=== PATIENT | male | born 1970 | race Caucasian/White ===

== ENCOUNTER 2016-12-01 12:14 | Emergency (ER) | payer OTHER ==
[2016-12-01 12:39] VITALS: BP 119/78
--- NOTE | 2016-12-01 12:45 | UC ---
Throat Pain/Nasal Steve HPI - HPI Summary HPI Summary: complaint of nasal congestion ,sore throat,cough that started 6 days ago productive cough coughing which is worse at night fever 2 days ago of 101 bilateral ear pain constant headache hears wheezing in his chest at night taking robitussin with some relief of cough in the daytime denies shortness of breath hasn't used albuterol during this illness - History of Current Complaint Chief Complaint: UCGeneralIllness Stated Complaint: EAR PAIN SORE THROAT COUGH CONGESTION Time Seen by Provider: 12/01/16 12:37 Hx Obtained From: Patient - Allergies/Home Medications Allergies/Adverse Reactions: Allergies Allergy/AdvReac Type Severity Reaction Status Date / Time No Known Allergies Allergy Verified 12/01/16 12:59 Home Medications: Home Medications Dextromethorphan-Guaifenesin [Robitussin Cough & Chest 5-100 mg/5Ml] 1 cap PO Q6HR PRN 12/01/16 [History Confirmed 12/01/16] Guaifenesin [Mucinex Maximum Strength] 2 tab PO Q6HR PRN 12/01/16 [History Confirmed 12/01/16] PMH/Surg Hx/FS Hx/Imm Hx Previously Healthy: Yes Endocrine History Of: Denies: Diabetes, Thyroid Disease Cardiovascular History Of: Denies: Cardiac Disorders, Hypertension, Pacemaker/ICD Respiratory History Of: Denies: COPD, Asthma GI/ History Of: Denies: Gastroesophageal Reflux, Ulcer, Renal Disease Neurological History Of: Denies: CVA, Dementia, Seizures Other History Of: Negative For: Anticoagulant Therapy - Surgical History Surgical History: Yes Surgery Procedure, Year, and Place: APPENDECTOMY. Abdominal Surgery, bowl perf - Family History Known Family History: Positive: None - Social History Occupation: Unemployed Lives: With Family Alcohol Use: None Substance Use Type: Marijuana Substance Use Comment - Amount & Last Used: Daily- stopped approx 3 months ago. Smoking Status (MU): Heavy Every Day Tobacco Smoker Type: Cigarettes Amount Used/How Often: 1 PPD Length of Time of Smoking/Using Tobacco: 31 YEARS Have You Smoked in the Last Year: Yes Household Exposure Type: Cigarettes Cessation Counseling: Patient Advised to Stop Review of Systems Constitutional: Fever Skin: Negative Eyes: Negative ENT: Ear Ache, Nasal Discharge Respiratory: Cough Cardiovascular: Negative Gastrointestinal: Negative Genitourinary: Negative Motor: Negative Neurovascular: Negative Musculoskeletal: Negative Neurological: Headache Psychological: Negative All Other Systems Reviewed And Are Negative: Yes Physical Exam Triage Information Reviewed: Yes Appearance: No Pain Distress, Well-Nourished Vital Signs: Initial Vital Signs Temp 98.6 F 12/01/16 12:22 Pulse 74 12/01/16 12:22 Resp 20 12/01/16 12:22 BP 119/78 12/01/16 12:22 Pulse Ox 95 12/01/16 12:22 Vital Signs Reviewed: Yes Eyes: Positive: Conjunctiva Clear ENT: Positive: Pharyngeal erythema, Nasal congestion, Nasal drainage, TM red - right ear Neck: Positive: No Lymphadenopathy Respiratory: Positive: No respiratory distress, No accessory muscle use, Rhonchi , Wheezing - throughout Cardiovascular: Positive: RRR, No Murmur, Pulses Normal Abdomen Description: Positive: Nontender, Soft Bowel Sounds: Positive: Present Musculoskeletal: Positive: No Edema Neurological: Positive: Alert Psychological Exam: Normal Skin Exam: Normal Re-Evaluation - Re-Evaluation First Eval Re-Evaluation Time: 13:08 Change: Improved - less wheezing,rhonchi and more air movement throughout Throat Pain/Nasal Course/Dx - Course Course Of Treatment: exam completed. lung sounds improved with duoneb. will treat as COPD exacerbation d/t 32 year 1ppd smoking history. patient refuses chest x-ray - Differential Dx/Diagnosis Differential Diagnosis/HQI/PQRI: Pharyngitis, Sinusitis, URI Provider Diagnoses: bronchitis Discharge - Discharge Plan Condition: Stable Disposition: HOME Prescriptions: Azithromycin TAB* [Zithromax TAB (Z-DOMINIQUE) 250 mg #6 tabs] 2 tab PO .TODAY, THEN 1 DAILY #1 dominique predniSONE TAB* [Deltasone TAB*] 50 mg PO DAILY #5 tab Patient Education Materials: How to Stop Smoking (ED), Acute Bronchitis (ED) Referrals: No Primary Care Phys,NOPCP [Medical Doctor] - [facility] [place] PHYSICIAN REFERRAL [Outside] Additional Instructions: Please take antibiotic as directed Use your albuterol inhaler every 4-6 hours when needed for wheezing, shortness of breath or uncontrolled coughing. Increase fluids and rest Take acetaminophen or ibuprofen for fever or pain Please review your discharge instructions. If your symptoms do not improve please call your primary care provider or return to urgent care.
[2016-12-01] MEDS ORDERED: Albuterol/Ipratropium NEB.SOL* Albuterol 2.5 MG/Ipratropium 0.5 MG 3 ML INH ONE (12:48)
== END 2016-12-01 13:28 | disposition home or self-care (01) ==
LOC: UCEAST 12:14
DX: J40 Bronchitis, not specified as acute or chronic (principal); F17.210 Nicotine dependence, cigarettes, uncomplicated
CPT/HCPCS: 99212; A9270-GY; G0463

== ENCOUNTER 2017-06-20 11:05 | Emergency (ER) | payer OTHER ==
--- NOTE | 2017-06-20 13:12 | RAD ---
HISTORY: Left shoulder pain and injury COMPARISONS: None VIEWS: 4, Frontal internal rotation, external rotation, outlet, and axillary views of the left shoulder FINDINGS: BONE DENSITY: Normal. BONES: There is no displaced fracture. JOINTS: There is no arthropathy. ALIGNMENT: There is no dislocation. SOFT TISSUES: Unremarkable. OTHER FINDINGS: None. IMPRESSION: NO ACUTE OSSEOUS INJURY. IF SYMPTOMS PERSIST, RECOMMEND REPEAT IMAGING.
--- NOTE | 2017-06-20 14:20 | ED ---
Upper Extremity Pain - HPI Summary HPI Summary: 47 male presents to ED with complaints of left shoulder/upper arm injury that occurred 3 weeks ago. Patient states he had a big machine piece fall on his arm 3 weeks ago and had since been experiencing pain. Has taken ibuprofen and tylenol withou relief. Movement and palpation makes it worse. States he has pulled muscles before and this feels like what it is. No other complaints. No numbness/tingling. No PMHx. Is right hand dominant. - History of Current Complaint Chief Complaint: EDExtremityUpper Stated Complaint: SHOULDER AND ARM INJURY Time Seen by Provider: 06/20/17 12:59 Hx Obtained From: Patient Mechanism Of Injury: Direct Blow Onset/Duration: Started Weeks Ago - 3, Traumatic, Still Present Timing: Constant Severity Initially: Severe Severity Currently: Moderate Pain Location: Shoulder, Arm - left Character: Sharp, Aching, Throbbing, Spasmodic Aggravating Factor(s): Movement, Lifting Alleviating Factor(s): Nothing, Rest Associated Signs & Symptoms: Positive: Swelling, Bruising. Negative: Numbness/ Tingling Related History: Dominant Hand Right - Allergies/Home Medications Allergies/Adverse Reactions: Allergies Allergy/AdvReac Type Severity Reaction Status Date / Time No Known Allergies Allergy Verified 06/20/17 11:15 PMH/Surg Hx/FS Hx/Imm Hx Endocrine/Hematology History: Denies: Hx Anticoagulant Therapy, Hx Diabetes, Hx Thyroid Disease Cardiovascular History: Denies: Hx Hypertension, Hx Pacemaker/ICD Respiratory History: Denies: Hx Asthma, Hx Chronic Obstructive Pulmonary Disease (COPD) GI History: Denies: Hx Ulcer History: Denies: Hx Renal Disease Sensory History: Denies: Hx Contacts or Glasses Opthamlomology History: Denies: Hx Contacts or Glasses Neurological History: Denies: Hx Dementia, Hx Seizures Psychiatric History: Denies: Hx Substance Abuse - Surgical History Surgery Procedure, Year, and Place: APPENDECTOMY. Abdominal Surgery, perf - Immunization History Immunizations Up to Date: Yes Infectious Disease History: No Infectious Disease History: Denies: Hx Hepatitis, Hx Human Immunodeficiency Virus (HIV), Traveled Outside the [place] in Last 30 Days - Family History Known Family History: Positive: None - Social History Alcohol Use: None Substance Use Type: Reports: None Substance Use Comment - Amount & Last Used: Daily- stopped approx 3 months ago. Smoking Status (MU): Light Every Day Tobacco Smoker Type: Cigarettes Amount Used/How Often: 3/4 PPD Length of Time of Smoking/Using Tobacco: 31 YEARS Have You Smoked in the Last Year: Yes Review of Systems Constitutional: Negative Cardiovascular: Negative Respiratory: Negative Positive: Arthralgia, Myalgia, Decreased ROM, Edema - left upper arm, shoulder Positive: Bruising - left upper arm Neurological: Negative All Other Systems Reviewed And Are Negative: Yes Physical Exam Triage Information Reviewed: Yes Vital Signs On Initial Exam: Initial Vitals Temp Pulse Resp BP Pulse Ox 95.6 F 67 16 124/76 97 06/20/17 11:16 12 11:16 06/20/17 11:16 06/20/17 11:16 06/20/17 11:16 Vital Signs Reviewed: Yes Appearance: Positive: Well-Appearing, Well-Nourished, Pain Distress - moderate with movement of left arm Skin: Positive: Warm, Skin Color Reflects Adequate Perfusion, Dry. Negative: Cold, Cyanosis @, Pale, Erythema @ Eyes: Positive: Conjunctiva Clear ENT: Positive: Hearing grossly normal Respiratory/Lung Sounds: Positive: Clear to Auscultation, Breath Sounds Present. Negative: Rales, Rhonchi, Wheezes Cardiovascular: Positive: Normal, RRR, Pulses are Symmetrical in both Upper and Lower Extremities - 2+ radial bl. Negative: Murmur, Rub Musculoskeletal: Positive: Limited @ - left shoulder/arm du to pain, better with passive ROM, Abnormal @ - firm swollen area palpated on tricep /deltoid area, appears to be a pulled muscle, negative yergason and speeds no concern for bicep tendon rupture at this time, Pain @ - left upper arm, posterior and deltoid/shoulder, Other - rest of MSK exam normal, no firmness or concern for compartment syndrome. Negative: Interruption @ Neurological: Positive: Normal, Sensory/Motor Intact, Alert, Oriented to Person Place, Time, NV Bundle Intact Distally, Normal Gait Diagnostics - Vital Signs Vital Signs Temp Pulse Resp BP Pulse Ox 06/20/17 11:16 95.6 F 67 16 124/76 97 - Laboratory Lab Statement: Any lab studies that have been ordered have been reviewed, and results considered in the medical decision making process. - Radiology shoulder left Xray Interpretation: No Acute Changes - negative Radiology Interpretation Completed By: Radiologist - and myself Course/Dx - Course Course Of Treatment: given pain medication and muscle relaxer. encouraged NSAID continue use with food. rest, heat, sling, avoid over use. massage. follow up ortho for further imaging as may be necessary (MRI) for ligament and muscle damage. does have most ROM although painful. xray obtained and negative. no concern for other etiology at this time. no signs of compartment syndrome. patient aware of worsening signs and symptoms, agrees and understands plan. normal vitals. - Diagnoses Differential Diagnosis/HQI/PQRI: Positive: Contusion, Strain, Sprain Provider Diagnoses: Strain of left upper arm, Contusion, Sprain of left shoulder Discharge - Discharge Plan Condition: Stable Disposition: HOME Prescriptions: Cyclobenzaprine TAB* [Flexeril 10 MG TAB*] 10 mg PO BEDTIME #15 tab oxyCODONE/Acetamin 5/325 MG* [Percocet 5/325 TAB*] 1 tab PO Q6H PRN #20 tab MDD 2 PRN Reason: Pain Patient Education Materials: Muscle Strain (ED), Shoulder Sprain (ED) Referrals: Augusto Dominguez MD [Primary Care Provider] - Additional Instructions: Rest, elevate and apply heat and massage. continue taking ibuprofen with food. take prescribed medications as directed. follow up with orthopedics,c all to make an appointment, and PCP. any new or worsening symptoms please seek medical attention promptly.
[2017-06-20 14:25] VITALS: BP 135/82
== END 2017-06-20 14:24 | disposition home or self-care (01) ==
LOC: ED 11:05
DX: S46.912A Strain of unspecified muscle, fascia and tendon at shoulder and upper arm level, left arm, initial encounter (principal); S43.402A Unspecified sprain of left shoulder joint, initial encounter; S40.022A Contusion of left upper arm, initial encounter; W20.8XXA Other cause of strike by thrown, projected or falling object, initial encounter; Y93.9 Activity, unspecified; Y92.9 Unspecified place or not applicable; F17.210 Nicotine dependence, cigarettes, uncomplicated
CPT/HCPCS: 99282

== ENCOUNTER 2017-08-10 14:48 | Emergency (ER) | payer OTHER ==
[2017-08-10] MEDS ORDERED: Ketorolac INJ* 60 MG/2 ML VIAL IM ONE (16:31)
[2017-08-10] MEDS ORDERED: oxyCODONE/Acetamin 5/325 MG* TAB PO ONE (16:31)
--- NOTE | 2017-08-10 17:49 | RAD ---
INDICATION: Trauma, right hip, right lower back and rib pain. COMPARISON: There are no prior studies available for comparison. TECHNIQUE: A CT scan of the chest, abdomen and pelvis was performed without intravenous or oral contrast. Contiguous axial sections were obtained from the lung apices through the symphysis pubis. Images were reconstructed in the coronal and sagittal planes. FINDINGS: The lungs are clear. No pleural effusion or pneumothorax is seen. No mediastinal hemorrhage is seen. No significant enlarged mediastinal or hilar lymph nodes are noted. The heart is within normal limits in size. No pericardial effusion is present. The thoracic aorta is normal in caliber. The liver and spleen are normal in size without significant focal abnormality. No calcified gallstones are seen. The pancreas is normal in size. There is a surgical clip inferior to the right hepatic lobe and several surgical clips present in the upper anterior abdomen. The kidneys and adrenal glands are normal in size. No hydronephrosis is seen. No significant focal renal abnormality is seen. The prostate gland is enlarged measuring 4.5 cm in transverse dimension. There are several coarse internal calcifications. The aorta is normal in caliber without significant calcific plaque. There is no evidence for retroperitoneal hemorrhage. No significant enlarged retroperitoneal lymph nodes are seen. The stomach, small and large bowel appear nondistended. The patient is status post appendectomy by history. No free intraperitoneal air or fluid is seen. There is a slightly displaced fracture of the right posterior 11th rib. There are nondisplaced fractures of the right L1 and L2 transverse processes. IMPRESSION: SLIGHTLY DISPLACED FRACTURE OF THE RIGHT POSTERIOR 11TH RIB AND NONDISPLACED FRACTURES OF THE RIGHT L1 AND L2 TRANSVERSE PROCESSES.
[2017-08-10 18:26] VITALS: BP 121/72
--- NOTE | 2017-08-11 11:56 | ED ---
Grant Coronado Jennifer, scribed for Henri Sykes MD on 08/10/17 at 1708 . Lower Extremity - HPI Summary HPI Summary: The patient is a 47 year old male who complains of right hip and back pain after he fell off his roof and landed on the sidewalk today. He additionally complains of muscle pain which he describes as a burning sensation. The patient denied abdominal pain. - History of Current Complaint Chief Complaint: EDExtremityLower Stated Complaint: FALL/RT HIP PAIN Time Seen by Provider: 08/10/17 16:12 Hx Obtained From: Patient Mechanism Of Injury: Fall From Height Of: - Roof of his house Onset of Pain: Immediate Onset/Duration: Still Present Severity Initially: Moderate Severity Currently: Moderate Pain Intensity: 8 Pain Scale Used: 0-10 Numeric Timing: Constant Associated Signs And Symptoms: Positive: Other - Fluid coming out of throat, burning muscle pain Aggravating Factor(s): Movement Alleviating Factor(s): Nothing - Allergies/Home Medications Allergies/Adverse Reactions: Allergies Allergy/AdvReac Type Severity Reaction Status Date / Time No Known Allergies Allergy Verified 08/10/17 15:20 PMH/Surg Hx/FS Hx/Imm Hx Endocrine/Hematology History: Denies: Hx Anticoagulant Therapy, Hx Diabetes, Hx Thyroid Disease Cardiovascular History: Denies: Hx Hypertension, Hx Pacemaker/ICD Respiratory History: Denies: Hx Asthma, Hx Chronic Obstructive Pulmonary Disease (COPD) GI History: Denies: Hx Ulcer History: Denies: Hx Renal Disease Sensory History: Denies: Hx Contacts or Glasses Opthamlomology History: Denies: Hx Contacts or Glasses Neurological History: Denies: Hx Dementia, Hx Seizures Psychiatric History: Denies: Hx Substance Abuse - Surgical History Surgery Procedure, Year, and Place: APPENDECTOMY. REPAIR OF BOWEL PERFORATION Infectious Disease History: No Infectious Disease History: Denies: Hx Hepatitis, Hx Human Immunodeficiency Virus (HIV), Traveled Outside the [place] in Last 30 Days - Family History Known Family History: Negative: Renal Disease - Social History Alcohol Use: None Substance Use Type: Reports: None Substance Use Comment - Amount & Last Used: Daily- stopped approx 3 months ago. Smoking Status (MU): Light Every Day Tobacco Smoker Type: Cigarettes Amount Used/How Often: 3/4 PPD Length of Time of Smoking/Using Tobacco: 31 YEARS Have You Smoked in the Last Year: Yes Review of Systems Negative: Fever Positive: Other - Fluid coming out of throat Positive: Myalgia, Other - Right hip and back pain All Other Systems Reviewed And Are Negative: Yes Physical Exam - Summary Physical Exam Summary: Appearance: The patient is well-nourished in no acute distress and in no acute pain. Skin: The skin is warm and dry and skin color reflects adequate perfusion. HEENT: ~The head is normocephalic and atraumatic. The pupils are equal and reactive. The conjunctivae are clear and without drainage. ~Nares are patent and without drainage. ~Mouth reveals moist mucous membranes and the throat is without erythema and exudate. ~The external ears are intact. The ear canals are patent and without drainage. The tympanic membranes are intact. Neck: the neck is supple with full range of motion and non-tender. There are no carotid bruits. ~There is no neck vein distension. Respiratory: Chest is non-tender. ~Lungs are clear to auscultation and breath sounds are symmetrical and equal. Cardiovascular: Heart is regular rate and rhythm. ~There is no murmur or rub auscultated. ~~There is no peripheral edema and pulses are symmetrical and equal. Abdomen: The abdomen is soft and non-tender. ~There are normal bowel sounds heard in all four quadrants and there is no organomegaly palpated. Musculoskeletal: There is no back tenderness noted. ~Tender in the right sciatic area and iliac crest. ~There is good capillary refill. ~There is no peripheral edema or calf tenderness elicited. Neurological: Patient is alert and oriented to person, place and time. ~The patient has symmetrical motor strength in all four extremities. ~Cranial nerves are grossly intact. Deep tendon reflexes are symmetrical and equal in all four extremities. Psychiatric: The patient has an appropriate affect and does not exhibit any anxiety or depression. Triage Information Reviewed: Yes Vital Signs On Initial Exam: Initial Vitals Temp Pulse Resp BP Pulse Ox 98.2 F 73 18 123/76 96 08/10/17 14:52 08/10/17 14:52 08/10/17 14:52 08/10/17 14:52 08/10/17 14:52 Vital Signs Reviewed: Yes Diagnostics - Vital Signs Vital Signs Temp Pulse Resp BP Pulse Ox 08/10/17 16:35 16 08/10/17 16:30 65 136/56 97 08/10/17 16:00 59 122/65 98 08/10/17 15:30 66 118/69 96 08/10/17 15:14 68 96 08/10/17 15:12 125/62 08/10/17 14:52 98.2 F 73 18 123/76 96 - Laboratory Lab Statement: Any lab studies that have been ordered have been reviewed, and results considered in the medical decision making process. - CT CT Chest/Abd/Pel CT Interpretation: Positive (See Comments) - SLIGHTLY DISPLACED FRACTURE OF THE RIGHT POSTERIOR 11TH RIB AND NONDISPLACED FRACTURES OF THE RIGHT L1 AND L2 TRANSVERSE PROCESSES. Dr. Sykes has reviewed this report. CT Interpretation Completed By: Radiologist Lower Extremity Course/Dx - Course Course Of Treatment: Mr. Crawley took a serious fall off his roof today landing on cement. He had no head trauma or neck pain but did C/O a lot of back and right hip pain. CT revealed transverse process fractures of L1-L2 as well as a T-11 posterior rib fracture all on the right consistent with his pain and tenderness. He remained stable in the ED and I will treat him symptomatically. - Diagnoses Provider Diagnoses: Rib fracture, Fracture of transverse process of vertebra Discharge - Discharge Plan Condition: Stable Disposition: HOME Prescriptions: Cyclobenzaprine TAB* [Flexeril 10 MG TAB*] 10 mg PO TID PRN #20 tab PRN Reason: Pain oxyCODONE/Acetamin 5/325 MG* [Percocet 5/325 TAB*] 1 tab PO Q6H PRN #20 tab MDD 4 PRN Reason: Pain Patient Education Materials: Rib Fracture (ED) Referrals: Augusto Dominguez MD [Primary Care Provider] - Additional Instructions: Follow up with your primary care physician in three days. Return to the emergency department for any new or worsening symptoms. The documentation as recorded by the Grant foy Jennifer accurately reflects the service I personally performed and the decisions made by , Henri Sykes MD.
== END 2017-08-10 18:38 | disposition home or self-care (01) ==
LOC: ED 14:48
DX: S32.018A Other fracture of first lumbar vertebra, initial encounter for closed fracture (principal); S32.028A Other fracture of second lumbar vertebra, initial encounter for closed fracture; S22.31XA Fracture of one rib, right side, initial encounter for closed fracture; W13.2XXA Fall from, out of or through roof, initial encounter; Y92.9 Unspecified place or not applicable; F17.210 Nicotine dependence, cigarettes, uncomplicated
CPT/HCPCS: 71250; 74176; 96372; 99283; A9270-GY; J1885

== ENCOUNTER 2018-02-24 07:22 | Emergency (ER) | payer OTHER ==
--- NOTE | 2018-02-24 09:12 | RAD ---
HISTORY: Pain after kneeling COMPARISONS: None VIEWS: 4, Frontal, lateral, axial, and oblique views of the right knee FINDINGS: BONE DENSITY: Normal. BONES: There is no displaced fracture. JOINTS: There is no arthropathy. There is no suprapatellar joint effusion or lipohemarthrosis. ALIGNMENT: There is no dislocation. SOFT TISSUES: There is prepatellar soft tissue swelling. OTHER FINDINGS: None. IMPRESSION: SOFT TISSUE SWELLING. NO ACUTE OSSEOUS INJURY. IF SYMPTOMS PERSIST, RECOMMEND REPEAT IMAGING.
[2018-02-24] MEDS ORDERED: Ibuprofen TAB* 800 MG PO ONE (09:36)
--- NOTE | 2018-02-24 09:38 | ED ---
Lower Extremity - HPI Summary HPI Summary: Pt here w/ Rt anterior knee pain/swelling after kneeling all day yesterday. Mild redness - no streaking. Denies numbness, tingling, weakness and has FROM. Better w/ ice. Has not taken NSAID's but is open to trying some. Denies fever, chills, fatigue, other areas of joint pain/swelling, headache or neck stiffness , difficulty urinating. - History of Current Complaint Chief Complaint: EDExtremityLower Stated Complaint: RT KNEE PAIN Time Seen by Provider: 02/24/18 07:33 Hx Obtained From: Patient Pain Intensity: 8 - Allergies/Home Medications Allergies/Adverse Reactions: Allergies Allergy/AdvReac Type Severity Reaction Status Date / Time No Known Allergies Allergy Verified 02/24/18 07:26 PMH/Surg Hx/FS Hx/Imm Hx Previously Healthy: Yes Endocrine/Hematology History: Denies: Hx Anticoagulant Therapy, Hx Diabetes, Hx Thyroid Disease Cardiovascular History: Denies: Hx Hypertension, Hx Pacemaker/ICD Respiratory History: Denies: Hx Asthma, Hx Chronic Obstructive Pulmonary Disease (COPD) GI History: Denies: Hx Ulcer History: Denies: Hx Renal Disease Musculoskeletal History: Denies: Hx Arthritis Sensory History: Denies: Hx Contacts or Glasses Opthamlomology History: Denies: Hx Contacts or Glasses Neurological History: Denies: Hx Dementia, Hx Seizures Psychiatric History: Denies: Hx Substance Abuse - Surgical History Surgery Procedure, Year, and Place: APPENDECTOMY. REPAIR OF BOWEL PERFORATION Infectious Disease History: No Infectious Disease History: Denies: Hx Hepatitis, Hx Human Immunodeficiency Virus (HIV), Traveled Outside the [place] in Last 30 Days - Family History Known Family History: Positive: None Negative: Renal Disease - Social History Occupation: Employed Full-time Lives: With Family Alcohol Use: None Hx Substance Use: No Substance Use Type: Reports: None Substance Use Comment - Amount & Last Used: Daily- stopped approx 3 months ago. Hx Tobacco Use: Yes Smoking Status (MU): Current Every Day Smoker Type: Cigarettes Amount Used/How Often: 3/4 PPD Length of Time of Smoking/Using Tobacco: 31 YEARS Have You Smoked in the Last Year: Yes Review of Systems Constitutional: Negative Negative: Fever, Chills, Fatigue Cardiovascular: Negative Respiratory: Negative Negative: Vomiting, Nausea Genitourinary: Negative Positive: Arthralgia, Edema. Negative: Myalgia, Decreased ROM Skin: Other - redness Neurological: Negative Psychological: Normal All Other Systems Reviewed And Are Negative: Yes Physical Exam Triage Information Reviewed: Yes Vital Signs On Initial Exam: Initial Vitals Temp Pulse Resp BP Pulse Ox 98.5 F 79 15 126/72 94 02/24/18 07:26 18 07:26 02/24/18 07:26 02/24/18 07:26 02/24/18 07:26 Vital Signs Reviewed: Yes Appearance: Positive: Well-Appearing, Well-Nourished, Pain Distress - mild Skin: Positive: Warm, Skin Color Reflects Adequate Perfusion, Dry - skin over anterior knee is calloused and w/ focal erythema - no lesions, no skin breakdown , no streaking ENT: Positive: Hearing grossly normal Respiratory/Lung Sounds: Positive: Breath Sounds Present Cardiovascular: Positive: Pulses are Symmetrical in both Upper and Lower Extremities. Negative: Leg Edema Left, Leg Edema Right Musculoskeletal: Positive: Strength/ROM Intact, Pain @ - Anterior knee w/ mild TTP - appears to have focal edema of tissue here (appears to be isolated to prepatellar bursa) Neurological: Positive: Normal, Sensory/Motor Intact, Alert, Oriented to Person Place, Time, CN Intact II-III Psychiatric: Positive: Normal Diagnostics - Vital Signs Vital Signs Temp Pulse Resp BP Pulse Ox 02/24/18 07:26 98.5 F 79 15 126/72 94 - Laboratory Lab Statement: Any lab studies that have been ordered have been reviewed, and results considered in the medical decision making process. Lower Extremity Course/Dx - Course Course Of Treatment: Prepatellar soft tissue swelling on XR -no fx, no dislocation, no arthritis, no effusion. Clinical presentation correlated w/ bursitis. - Diagnoses Provider Diagnoses: Prepatellar bursitis Discharge - Sign-Out/Discharge Documenting (check all that apply): Patient Departure - Discharge Plan Condition: Stable Disposition: HOME Prescriptions: Ibuprofen TAB* [Motrin TAB* 800 MG] 800 mg PO Q8HR PRN #20 tab PRN Reason: Pain Patient Education Materials: Knee Bursitis (ED) Referrals: Augusto Dominguez MD [Primary Care Provider] - Additional Instructions: Rest, ice, compress with NORTH wrap and elevate Avoid bending, kneeling, squatting, climbing Take medication as directed Follow-up with PCP this week - if worse, return to ED - Billing Disposition and Condition Condition: STABLE Disposition: Home
[2018-02-24 09:48] VITALS: BP 117/73
== END 2018-02-24 09:47 | disposition home or self-care (01) ==
LOC: ED 07:22
DX: M25.561 Pain in right knee (principal); M25.461 Effusion, right knee; F17.210 Nicotine dependence, cigarettes, uncomplicated
CPT/HCPCS: 99282; A9270-GY